=== PATIENT | female | born 1940 | race Caucasian/White ===

== ENCOUNTER 2016-12-29 12:45 | Emergency (ER) | payer MEDICARE, BC ==
[2016-12-29 13:23] VITALS: TEMP 97.8
[2016-12-29] MEDS ORDERED: SODIUM CHLORIDE 0.9% 1,000 ML IV STA (14:03)
[2016-12-29] MEDS ORDERED: MECLIZINE 12.5 MG TAB PO STA (14:03)
[2016-12-29] MEDS ORDERED: METOCLOPRAMIDE 5 MG/ML 2 ML VIAL IVP STA (14:03)
--- NOTE | 2016-12-29 14:08 | ED ---
General Adult HPI - General Chief complaint: Dizziness Stated complaint: Dizziness/Weakness Time Seen by Provider: 12/29/16 13:58 Source: patient, RN notes reviewed Mode of arrival: wheelchair Limitations: no limitations - History of Present Illness Initial comments: Patient is a pleasant 76-year-old female presenting to the emergency department complaining of dizziness. Onset was when she woke up in the middle the night. Symptoms were bad when she got up and improved when she lied down. Symptoms are positional. Patient has had some mild nausea and minimal emesis/spitting up. No confusion. No visual change. No weakness. No history of similar symptoms previously. Patient describes dizziness as spinning type sensation. - Related Data Home Medications Medication Instructions Recorded Confirmed Calcium Carbonate [Calcium] 600 mg PO DAILY 12/29/16 12/29/16 Cholecalciferol [Vitamin D3] 3,000 unit PO DAILY 12/29/16 12/29/16 Flecainide [Tambocor] 50 mg PO BID 12/29/16 12/29/16 Levothyroxine Sodium [Synthroid] 75 mcg PO DAILY 12/29/16 12/29/16 Losartan Potassium [Cozaar] 50 mg PO DAILY 12/29/16 12/29/16 Magnesium 200 mg PO DAILY 12/29/16 12/29/16 Simvastatin [Zocor] 20 mg PO W/SUPPER 12/29/16 12/29/16 Warfarin Sodium [Coumadin] 5 mg PO MOWEFR 12/29/16 12/29/16 Warfarin [Coumadin] 2.5 mg PO SUTUTHSA 12/29/16 12/29/16 Previous Rx's Medication Instructions Recorded Meclizine [Antivert] 25 mg PO TID PRN #12 tab 12/29/16 Metoclopramide HCl [Reglan] 10 mg PO Q6HR PRN #15 tablet 12/29/16 Allergies Allergy/AdvReac Type Severity Reaction Status Date / Time adhesive tape Allergy Rash/Hives Verified 12/29/16 14:08 Review of Systems ROS Statement: Those systems with pertinent positive or pertinent negative responses have been documented in the HPI. ROS Other: All systems not noted in ROS Statement are negative. Constitutional: Denies: fever Eyes: Denies: eye pain ENT: Denies: ear pain Respiratory: Denies: cough Cardiovascular: Denies: chest pain Endocrine: Denies: fatigue Gastrointestinal: Denies: abdominal pain Genitourinary: Denies: dysuria Musculoskeletal: Denies: back pain Skin: Denies: rash Neurological: Reports: vertigo. Denies: headache, weakness, paresthesias, confusion Past Medical History Past Medical History: Atrial Fibrillation, Cancer, Hyperlipidemia, Hypertension , Thyroid Disorder Additional Past Medical History / Comment(s): breast cancer History of Any Multi-Drug Resistant Organisms: None Reported Additional Past Surgical History / Comment(s): D&C, lumpectomy Past Psychological History: No Psychological Hx Reported Smoking Status: Former smoker Past Alcohol Use History: None Reported Past Drug Use History: None Reported General Exam Limitations: no limitations General appearance: alert, in no apparent distress Head exam: Present: atraumatic, normocephalic Eye exam: Present: normal appearance, PERRL ENT exam: Present: normal oropharynx Neck exam: Present: normal inspection Respiratory exam: Present: normal lung sounds bilaterally Cardiovascular Exam: Present: regular rate, normal rhythm GI/Abdominal exam: Present: soft. Absent: tenderness Extremities exam: Present: normal inspection Neurological exam: Present: alert, CN II-XII intact, motor sensory deficit Expanded Speech: Present: fluid speech Cranial nerves: EOM's Intact: Normal, Facial Sensation: Normal Cerebellar function: Finger to Nose: Normal Sensory exam: Upper Extremity Light Touch: Normal, Lower Extremity Light Touch: Normal Motor strength exam: RUE: 5, LUE: 5, RLE: 5, LLE: 5 Eye Response: (4) open spontaneously Motor Response: (6) obeys commands Verbal Response: (5) oriented Psychiatric exam: Present: normal affect, normal mood Skin exam: Present: normal color Course Vital Signs 12/29/16 13:20 Temperature 97.8 F Pulse Rate 78 Respiratory 20 Rate Blood Pressure 173/84 O2 Sat by Pulse 98 Oximetry EKG Findings - EKG Comments: EKG Findings:: Normal sinus rhythm 76. First-degree AV block [place] 202. QRS 88. QT 404. QTC 454. Normal axis. Normal QRS. Normal ST-T. Medical Decision Making - Medical Decision Making Patient reevaluated and symptom-free. Patient did get up twice without any difficulty. Patient and family updated on results and need for follow-up. - Lab Data Result diagrams: 12/29/16 14:30 12/29/16 14:30 Lab Results 12/29/16 12/29/16 12/29/16 Range/Units 14:30 14:30 14:30 WBC 5.6 (3.8-10.6) k/uL RBC 4.30 (3.80-5.40) m/uL Hgb 12.0 (11.4-16.0) gm/dL Hct 36.5 (34.0-46.0) % MCV 84.8 (80.0-100.0) fL MCH 27.9 (25.0-35.0) pg MCHC 32.9 (31.0-37.0) g/dL RDW 13.8 (11.5-15.5) % Plt Count 220 (150-450) k/uL Neutrophils % 77 % Lymphocytes % 16 % Monocytes % 4 % Eosinophils % 1 % Basophils % 0 % Neutrophils # 4.3 (1.3-7.7) k/uL Lymphocytes # 0.9 L (1.0-4.8) k/uL Monocytes # 0.2 (0-1.0) k/uL Eosinophils # 0.0 (0-0.7) k/uL Basophils # 0.0 (0-0.2) k/uL PT 18.2 H (9.0-12.0) sec INR 1.9 (<1.1) APTT 26.4 (22.0-30.0) sec Sodium 138 (137-145) mmol/L Potassium 3.9 (3.5-5.1) mmol/L Chloride 105 (98-107) mmol/L Carbon Dioxide 25 (22-30) mmol/L Anion Gap 8 mmol/L BUN 15 (7-17) mg/dL Creatinine 0.60 (0.52-1.04) mg/dL Est GFR (MDRD) Af Amer >60 (>60 ml/min/1.73 sqM) Est GFR (MDRD) Non-Af >60 (>60 ml/min/1.73 sqM) Glucose 99 (74-99) mg/dL Calcium 9.6 (8.4-10.2) mg/dL Total Bilirubin 0.6 (0.2-1.3) mg/dL AST 21 (14-36) U/L ALT 30 (9-52) U/L Alkaline Phosphatase 60 (38-126) U/L Troponin I (0.000-0.034) ng/mL Total Protein 7.3 (6.3-8.2) g/dL Albumin 4.1 (3.5-5.0) g/dL 12/29/16 Range/Units 14:30 WBC (3.8-10.6) k/uL RBC (3.80-5.40) m/uL Hgb (11.4-16.0) gm/dL Hct (34.0-46.0) % MCV (80.0-100.0) fL MCH (25.0-35.0) pg MCHC (31.0-37.0) g/dL RDW (11.5-15.5) % Plt Count (150-450) k/uL Neutrophils % % Lymphocytes % % Monocytes % % Eosinophils % % Basophils % % Neutrophils # (1.3-7.7) k/uL Lymphocytes # (1.0-4.8) k/uL Monocytes # (0-1.0) k/uL Eosinophils # (0-0.7) k/uL Basophils # (0-0.2) k/uL PT (9.0-12.0) sec INR (<1.1) APTT (22.0-30.0) sec Sodium (137-145) mmol/L Potassium (3.5-5.1) mmol/L Chloride (98-107) mmol/L Carbon Dioxide (22-30) mmol/L Anion Gap mmol/L BUN (7-17) mg/dL Creatinine (0.52-1.04) mg/dL Est GFR (MDRD) Af Amer (>60 ml/min/1.73 sqM) Est GFR (MDRD) Non-Af (>60 ml/min/1.73 sqM) Glucose (74-99) mg/dL Calcium (8.4-10.2) mg/dL Total Bilirubin (0.2-1.3) mg/dL AST (14-36) U/L ALT (9-52) U/L Alkaline Phosphatase (38-126) U/L Troponin I <0.012 (0.000-0.034) ng/mL Total Protein (6.3-8.2) g/dL Albumin (3.5-5.0) g/dL - Radiology Data Radiology results: report reviewed (Computed tomography scan shows atrophy, no acute process.) Disposition Clinical Impression: Vertigo Disposition: HOME SELF-CARE Condition: Stable Instructions: Dizziness (ED) Additional Instructions: Please follow-up to in the beginning of the week. Return for increased dizziness, weakness, confusion, visual changes, speech problems, worsening symptoms or any other concerns. Prescriptions: Meclizine [Antivert] 25 mg PO TID PRN #12 tab PRN Reason: dizziness Metoclopramide HCl [Reglan] 10 mg PO Q6HR PRN #15 tablet PRN Reason: Nausea Referrals: Kenny Mckeon MD [Primary Care Provider] - 1-2 days Time of Disposition: 15:43
[2016-12-29 14:55] LABS: INR 1.9 (<1.1); Partial Thromboplastin Time 26.4 sec (22.0-30.0); Prothrombin Time 18.2 sec (9.0-12.0)
[2016-12-29 14:58] LABS: ALT 30 U/L (9-52); AST 21 U/L (14-36); Alkaline Phosphatase 60 U/L (38-126); Anion Gap 8 mmol/L; Basophils % (A) 0 %; Blood Urea Nitrogen 15 mg/dL (7-17); CH 28.3; CHCM 33.5; Calcium 9.6 mg/dL (8.4-10.2); Carbon Dioxide 25 mmol/L (22-30); Chloride 105 mmol/L (98-107); Eosinophils % (A) 1 %; Glucose 99 mg/dL (74-99); HCT 36.5 % (34.0-46.0); HDW 2.48; Luc % (Auto) 2; Lymphocytes # (A) 0.9 k/uL (1.0-4.8); Lymphocytes % (A) 16 %; MCH 27.9 pg (25.0-35.0); MCHC 32.9 g/dL (31.0-37.0); MCV 84.8 fL (80.0-100.0); Mean Platelet Volume 7.6; Monocytes # (A) 0.2 k/uL (0-1.0); Monocytes % (A) 4 %; Neutrophils # (A) 4.3 k/uL (1.3-7.7); Neutrophils % (A) 77 %; Non-African American GFR(MDRD) >60 (>60 ml/min/1.73 sqM); Potassium 3.9 mmol/L (3.5-5.1); RDW 13.8 % (11.5-15.5); Sodium 138 mmol/L (137-145); Total Bilirubin 0.6 mg/dL (0.2-1.3); Total Protein 7.3 g/dL (6.3-8.2); WBC 5.6 k/uL (3.8-10.6); WBC (Perox) 6.12
--- NOTE | 2016-12-29 15:22 | CT ---
EXAMINATION TYPE: CT brain wo con DATE OF EXAM: 12/29/2016 2:53 PM COMPARISON: NONE INDICATION: Dizziness, vertigo and weakness DLP: 1108.40 mGycm, Automated exposure control for dose reduction was used. CONTRAST: None CT of the brain is performed utilizing 3 mm thick sections through the posterior fossa and 3 mm thick sections through the remaining calvarium. Study is performed within 24 hours of arrival to the hosp [facility]. No abnormal hyperdensity is present to suggest an acute intracranial hemorrhage. No mass lesion is evident. No acute infarcts are evident. There is prominence of the extra-axial spaces, greater on the left sylvian fissure region than elsewh ere. Ventricles appear appropriate for the patient age. There is mucosal thickening within left ethmoid air cells in the left frontal sinus. There is an air- fluid level or retention cyst within the left portion of the sphenoid sinus. Remaining paranasal sinu ses and mastoid air cells are clear. IMPRESSIONS: 1. Atrophy. 2. No acute intracranial process.
[2016-12-29 16:17] VITALS: BP 162/70; PULSE 73; RESP 18
== END 2016-12-29 16:16 | disposition home or self-care (01) ==
LOC: EC 12:45
DX: R42 Dizziness and giddiness (principal); I10 Essential (primary) hypertension; E78.5 Hyperlipidemia, unspecified; E07.9 Disorder of thyroid, unspecified; I48.91 Unspecified atrial fibrillation; Z85.3 Personal history of malignant neoplasm of breast; Z87.891 Personal history of nicotine dependence; Z91.048 Other nonmedicinal substance allergy status; Z79.01 Long term (current) use of anticoagulants; Z79.899 Other long term (current) drug therapy
CPT/HCPCS: 99284; 96374; 96361 ×2; 36415; 80053; 84484; 85025; 85610; 85730; 70450; J2765; 93005

== ENCOUNTER 2020-04-22 09:26 | Day surgery (SDC) | payer MEDICARE, BC ==
[2020-04-21 09:22] VITALS: BMI 22.1
[~2020-04-22 09:26] MED LIST: LACTATED RINGERS 1,000 ML IV SCH; LIDOCAINE 1% (10MG/ML) FOR IV START INTRADERMA PRN
[2020-04-22 10:00] VITALS: TEMP 98.2
[2020-04-22] MEDS ORDERED: PROPOFOL 10 MG/ML 20 ML VIAL IV ONE (11:27)
--- NOTE | 2020-04-22 11:53 | P.PCN ---
Date of Procedure: 04/22/20 Procedure(s) Performed: BRIEF HISTORY: Patient is a 79-year-old pleasant white female scheduled for an elective sigmoidoscopy as a part of evaluation of anal/rectal polyp that was noted on a colonoscopy done 3 months ago. 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 She is scheduled for follow-up sigmoidoscopy today PROCEDURE PERFORMED:Flexible sigmoidoscope with biopsy and argon plasma coagulation PREOPERATIVE DIAGNOSIS:Follow up rectal/anal polyp. IV sedation per Anesthesia. PROCEDURE: After informed consent was obtained, the patient, was brought into the endoscopy unit. IV sedation was administered by Anesthesia under continuous monitoring. Digital rectal examination was normal. Initially the Olympus CF-160 flexible video colonoscope was then inserted in the rectum, gradually advanced into the sigmoid colon. The sigmoid colon, and rectum appeared normal. Retrofle xion was performed in the rectum andin 2-3 mm polyp was noted just proximal to the dentate line which was biopsied. Following this using argon plasma coagulation the area was a obliterated and coagulated well. . The patient tolerated the procedure well. IMPRESSION: 2-3 mm small residual polyp just proximal to the dentate line status post biopsy followed by argon plasma coagulation as described above RECOMMENDATIONS: Findings of this examination were discussed with the patientas well as a family. She was advised to follow with the biopsy results and she will be seen in office in 2 weeks. Reason the biopsy results will decide if she needs any further follow-up.
[2020-04-22 12:07] VITALS: RESP 18
[2020-04-22 12:29] VITALS: BP 147/67; PULSE 67
== END 2020-04-22 12:44 | disposition home or self-care (01) ==
LOC: ORWHC2ENDO 09:26
PROVIDERS: ATTEND Internal Medicine Gastroenterology
DX: K62.1 Rectal polyp (principal); K08.409 Partial loss of teeth, unspecified cause, unspecified class; I48.91 Unspecified atrial fibrillation; I10 Essential (primary) hypertension; E78.5 Hyperlipidemia, unspecified; E07.9 Disorder of thyroid, unspecified; Z79.899 Other long term (current) drug therapy; Z98.890 Other specified postprocedural states; Z85.3 Personal history of malignant neoplasm of breast
CPT/HCPCS: 45346; 45331; 88305; 88342; J2704